=== PATIENT | female | born 1985 | race African-American/Black ===

== ENCOUNTER → 2020-01-19 | Day surgery (SDC) | payer OTHER ==
[~2020-01-19] MED LIST: BUPIVACAINE HCL 0.5% INJ 30 ML VIAL INJ ONE; CEFAZOLIN SOD 1 GM/NS 50ML 50 ML IV ONE; DEXAMETHASONE SOD PHOS INJ 4 MG/ML VIAL ONE; FENTANYL CITRATE/PF 100MCG/2 ML INJ ONE; HYDROMORPHONE 2MG/ML 2 MG/ML ML ONE; KETOROLAC TROMETHAMINE 30 MG/ML VIAL ONE; LIDOCAINE HCL 2% LOCAL INJ 5 ML SDV VIAL INJ ONE; LOESTRIN1 EAC1 PO; METOCLOPRAMIDE HCL 10 MG/2ML VIAL ONE; MIDAZOLAM HCL 2 MG/2 ML VIAL ONE; ONDANSETRON HCL INJ 2MG/ML 2ML 2 MG/ML VIAL ONE; PROPOFOL IV EMULSION 10 MG/ML 20 ML VIAL ONE; SEVOFLURANE INHAL SOLN 250 ML PEN BTL ONE; TYLENOL PO; ULTRAM50 MG PO
[2020-01-19 15:45] VITALS: BP 133/75
--- NOTE | 2020-01-19 19:26 | Operative Report ---
DATE OF PROCEDURE: 01/19/2020 SURGEON: Alfonzo Zavala MD [employer] MACHINE OPERATOR: Javid Chavez, certified PA. PREOPERATIVE DIAGNOSIS: Right ankle lateral malleolar fracture with syndesmosis disruption. POSTOPERATIVE DIAGNOSIS: Right ankle lateral malleolar fracture with syndesmosis disruption. PROCEDURE: Open reduction and internal fixation right ankle with syndesmosis repair using TightRope. INDICATIONS: The patient is an active 34-year-old lady, who has a fracture of her right ankle. There is pronounced widening of the medial clear space. The findings and options were discussed with the patient. We have recommended open reduction with internal fixation. The risks and benefits of the procedure were explained. The recovery was discussed. She states she understands and wishes to proceed. PROCEDURE IN DETAIL: The patient was brought to the operating room and placed under general anesthetic. Her right ankle was prepped and draped in a sterile manner. A preoperative time-out was performed. The extremity was exsanguinated and a proximal tourniquet was inflated to 300 mmHg. Attention was directed towards the distal fibula. An incision was made and the fracture site was carefully identified. A lobster claw reduction clamp was used to anatomically reduce the fracture. A 7-hole one-third semitubular plate was then placed into the distal fibula. This was fixed with proximal compression cortical screws and distal locking screws. Intraoperative x-rays were taken. The fibula was anatomically reduced. There was persistent widening of the medial clear space with stressing of the ankle mortise. I elected to use a TightRope syndesmosis repair. A drill hole was placed through one of the remaining open slots on the 7-hole one-third semitubular plate. A [employer] Endobutton TightRope construct was then passed through the medial soft tissue. The Endobutton was deployed in the medial cortex. The ankle was cycled with lateral compression and tension on the Endobutton. Intraoperative x-rays confirmed a nice reduction of the medial clear space even with stressing of the ankle mortise. The wound was then irrigated. The skin was closed with subcuticular Vicryl and interrupted nylon stitches. A sterile bandage was applied. She was placed back into the orthosis. She was extubated and transported to the recovery room in stable condition. There was no blood loss and all needle and sponge counts were correct. Alfonzo Zavala MD DR/WINDY /[id number]
== END | disposition home or self-care (01) ==
LOC: OR 09:17
PROVIDERS: ATTEND Specialist
DX: S82.61XA Displaced fracture of lateral malleolus of right fibula, initial encounter for closed fracture (principal); S93.421A Sprain of deltoid ligament of right ankle, initial encounter; V19.9XXA Pedal cyclist (driver) (passenger) injured in unspecified traffic accident, initial encounter; Y93.55 Activity, bike riding; Z91.013 Allergy to seafood; Z01.812 Encounter for preprocedural laboratory examination; Z11.59 Encounter for screening for other viral diseases
CPT/HCPCS: 27792; 27829; 76000; 81025; C1713 ×5; J0690; J1100; J1170; J1885; J2001; J2250; J2405; J2704; J2765; J3010; U0002